=== PATIENT | female | born 1965 | race Caucasian/White ===

== ENCOUNTER 2016-12-05 09:21 | Emergency (ER) | payer OTHER ==
[~2016-12-05] VITALS: Ht 162.6 cm; Wt 72.6 kg
[2016-12-05] MEDS ORDERED: AMBIEN 5 MG TABL5 M1 PO (09:23)
[2016-12-05] MEDS ORDERED: XANAX 0.5 MG0.5 MG PO (09:23)
[2016-12-05 11:13] VITALS: BP 110/62
== END 2016-12-05 11:13 | disposition home or self-care (01) ==
LOC: ER 09:21
DX: R51 Headache (principal); F17.210 Nicotine dependence, cigarettes, uncomplicated; Z85.3 Personal history of malignant neoplasm of breast; Z90.13 Acquired absence of bilateral breasts and nipples; Z88.2 Allergy status to sulfonamides; Z88.5 Allergy status to narcotic agent

== ENCOUNTER 2020-01-11 08:18 | Emergency (ER) | payer OTHER ==
[~2020-01-11] VITALS: Ht 162.6 cm; Wt 72.6 kg
[~2020-01-11 08:18] MED LIST: AMBIEN 5 MG TABL5 M1 PO; XANAX 0.5 MG0.5 MG PO
[2020-01-11 10:31] VITALS: BP 99/53
== END 2020-01-11 10:32 | disposition home or self-care (01) ==
LOC: ER 08:18
DX: R05 Cough (principal); R51.9 Headache, unspecified; M79.10 Myalgia, unspecified site; F17.210 Nicotine dependence, cigarettes, uncomplicated; Z79.899 Other long term (current) drug therapy; Z88.2 Allergy status to sulfonamides; Z88.8 Allergy status to other drugs, medicaments and biological substances; Z20.828 Contact with and (suspected) exposure to other viral communicable diseases